=== PATIENT | female | born 1970 | race Two or more races ===

== ENCOUNTER 2020-01-11 02:46 | Inpatient (IN) | payer OTHER ==
[~2020-01-11] VITALS: Ht 160 cm; Wt 64.2 kg
[2020-01-11 03:57] LABS: Basophils # (auto) 0 10 ^3/uL (0-0.2); Basophils % (auto) 0.2 % (0.0-2.0); Eosinophils # (auto) 0 10 ^3/uL (0-0.8); Eosinophils % (auto) 0.2 % (0.0-7.0); Hematocrit 46.5 % (36.0-46.0); Hemoglobin 15.3 g/dL (12.2-16.2); Lymphocytes # (auto) 1.3 10 ^3/uL (0.4-5.4); Lymphocytes % (auto) 10.5 % (10.0-50.0); Mean Corpuscular Hemoglobin 27.8 pg (28.0-32.0); Mean Corpuscular Hgb Conc. 32.8 g/dL (32.0-36.0); Mean Corpuscular Volume 84.7 fL (80.0-100.0); Monocytes # (auto) 0.4 10 ^3/uL (0-1.3); Monocytes % (auto) 2.9 % (0.0-12.0); Neutrophils # (auto) 10.7 10 ^3/uL (1.6-8.6); Neutrophils % (auto) 86.2 % (37.0-80.0); Nucleated Red Blood Cells % 0.2 %; Platelet Count (auto) 279 10^3/uL (140-450); Red Blood Cells 5.49 10^6/uL (4.0-5.20); Red Cell Distribution Width 13.9 % (11.8-14.3); White Blood Cell 12.4 10^3/uL (4.4-10.8)
[2020-01-11 04:17] LABS: Albumin 4.1 g/dL (3.4-5.0); Anion Gap 10 (5-15); Blood Urea Nitrogen 10 mg/dL (7-18); Calcium 8.2 mg/dL (8.5-10.1); Carbon Dioxide 23 mmol/L (21-32); Chloride 100 mmol/L (98-107); Glucose 191 mg/dL (74-106); Lipase 88 U/L (73-393); Potassium 3.2 mmol/L (3.5-5.1); Sodium 133 mmol/L (136-145)
[2020-01-11 04:19] LABS: Amylase 31 U/L (25-115); BUN/Creatinine Ratio 15.2; GFR African American 121 mL/min; GFR Non-African American 100 mL/min
[2020-01-11] MEDS ORDERED: PROMETHAZINE HCL 25 MG/ML 1ML IV ONE (04:30)
[2020-01-11] MEDS ORDERED: MORPHINE SULFATE 4 MG/ML SYR/VIAL IV ONE ×2 (04:30→06:30)
[2020-01-11 04:59] LABS: Alanine Aminotransferase 67 U/L (13-56); Alkaline Phosphatase 105 U/L (45-117); Aspartate Aminotransferase 17 U/L (15-37); Bilirubin, Total 0.4 mg/dL (0.2-1.0); Total Protein 7.4 g/dL (6.4-8.2)
[2020-01-11] MEDS ORDERED: ONDANSETRON HCL 4 MG/2 ML VIAL IV ONE ×3 (06:30→14:30)
[2020-01-11] MEDS ORDERED: HYDROcodone-ACET 5/325MG TAB PO ONE (09:00)
[2020-01-11] MEDS ORDERED: HYDROmorphone HCL 2 MG/ML VL IV ONE (14:30)
[2020-01-11] MEDS ORDERED: SODIUM CHLORIDE 0.9% 1,000 ML IV SCH (14:30)
[2020-01-11] MEDS ORDERED: NITROGLYCERIN 0.4 MG SL TAB SL PRN (14:45)
[2020-01-11] MEDS ORDERED: MORPHINE SULF INJ 2 MG/ML SYRINGE 1ML IV PRN (14:45)
[2020-01-11] MEDS ORDERED: LORazepam 2MG/ML-1ML VIAL IV PRN (15:15)
[2020-01-11] MEDS ORDERED: PROMETHAZINE HCL 25 MG/ML 1ML IV PRN (15:15)
[2020-01-11] MEDS ORDERED: cefTRIAXone 1GM/50ML D5W 50 ML IV ONE (15:15)
[2020-01-11] MEDS ORDERED: HYDROmorphone HCL 2 MG/ML VL IV PRN (15:15)
[2020-01-11] MEDS: SOD CHL 0.9%/ KCL 40MEQ 1,000 ML IV SCH (17:35)
[2020-01-11] MEDS: FAMOTIDINE (10MG/ML) 2ML VL IV SCH (17:36)
--- NOTE | 2020-01-11 17:38 | NUR ---
Telemetry admit from ER YAYOEVELYN admitted to Telemetry unit after SBAR received Cassie JAQUEZ. Patient oriented to Birgit Tafoya RN primary RN, unit, room, bed, and unit policies regarding patient care and visiting hours. Patient now on continuous telemetry monitoring, tele box #75 and telemetry reading on arrival to unit is sinus tachycardia 111 BPM. Patient weighed by bedscale and encouraged to call if they need anything. Will continue to monitor. Bed side commode placed at bedside.
--- NOTE | 2020-01-11 19:15 | NUR ---
ASSUMED CARE, PT. AWAKE, NO C/O PAIN, NOT IN DISTRESS.
[2020-01-11] MEDS: HYDROmorphone HCL 2 MG/ML VL IV PRN (20:00)
[2020-01-11] MEDS: metroNIDAZOLE 500MG/100ML 100 ML IV SCH (21:01)
[2020-01-11 21:39] VITALS: BP 139/77
[2020-01-11 23:07] LABS: Amylase 32 U/L (25-115); Lipase 168 U/L (73-393)
[2020-01-12] MEDS: SOD CHL 0.9%/ KCL 40MEQ 1,000 ML IV SCH ×3 (01:15→21:22)
[2020-01-12] MEDS: FAMOTIDINE (10MG/ML) 2ML VL IV SCH ×2 (04:48→17:16)
[2020-01-12 05:00] VITALS: BP 110/73
[2020-01-12] MEDS: metroNIDAZOLE 500MG/100ML 100 ML IV SCH ×3 (05:02→21:22)
[2020-01-12 05:48] LABS: Basophils # (auto) 0 10 ^3/uL (0-0.2); Basophils % (auto) 0.2 % (0.0-2.0); Eosinophils # (auto) 0 10 ^3/uL (0-0.8); Eosinophils % (auto) 0.2 % (0.0-7.0); Hemoglobin 13.9 g/dL (12.2-16.2); Lymphocytes # (auto) 1.7 10 ^3/uL (0.4-5.4); Lymphocytes % (auto) 9.8 % (10.0-50.0); Mean Corpuscular Hemoglobin 28.2 pg (28.0-32.0); Mean Corpuscular Hgb Conc. 33.8 g/dL (32.0-36.0); Mean Corpuscular Volume 83.4 fL (80.0-100.0); Monocytes # (auto) 1.6 10 ^3/uL (0-1.3); Monocytes % (auto) 9.2 % (0.0-12.0); Neutrophils # (auto) 13.7 10 ^3/uL (1.6-8.6); Neutrophils % (auto) 80.6 % (37.0-80.0); Nucleated Red Blood Cells % 0.3 %; Platelet Count (auto) 279 10^3/uL (140-450); Red Blood Cells 4.91 10^6/uL (4.0-5.20); Red Cell Distribution Width 13.7 % (11.8-14.3); White Blood Cell 16.9 10^3/uL (4.4-10.8)
[2020-01-12 06:11] LABS: Albumin 3.3 g/dL (3.4-5.0); Calcium 8.1 mg/dL (8.5-10.1); Potassium 3.5 mmol/L (3.5-5.1)
[2020-01-12 06:14] LABS: Bilirubin, Total 0.7 mg/dL (0.2-1.0); Total Protein 6.3 g/dL (6.4-8.2)
--- NOTE | 2020-01-12 08:03 | NUR ---
Opening Shift Note Assumed care of patient, awake and alert. Patient placed on wheelchair to be transported down for HIDA scan. Patient stable, No S/S of distress/SOB or pain.
--- NOTE | 2020-01-12 08:40 | NUR ---
PATIENT OFF UNIT Addendum: 01/12/20 at 0840 by YANICK GORDON RN RN Amended: Links added.
[2020-01-12] MEDS: HYDROmorphone HCL 2 MG/ML VL IV PRN ×2 (09:46→21:23)
[2020-01-12] MEDS: cefTRIAXone 1GM/50ML D5W 50 ML IV SCH (09:46)
[2020-01-12 11:19] LABS: INR 1.06 (0.9-1.15); Partial Thromboplastin Time 29.5 sec (23.0-31.2)
[2020-01-12] MEDS ORDERED: ATOR10TA52 PO (11:41)
[2020-01-12] MEDS ORDERED: AMLO5TAB15 PO (11:41)
[2020-01-12] MEDS ORDERED: LOSA25TA38 PO (11:41)
[2020-01-12] MEDS ORDERED: HYDR25TA4 PO (11:41)
[2020-01-12 12:52] LABS: Urine Bacteria NONE SEEN /hpf (None Seen); Urine Blood Negative /uL (Negative); Urine Mucus MODERATE (None Seen); Urine Specific Gravity 1.015 (1.001-1.035); Urine WBC 4 /hpf (0 - 5)
[2020-01-12 13:00] VITALS: BP 126/81
--- NOTE | 2020-01-12 13:52 | NUR ---
PATIENT OFF UNIT FOR SCHEDULED PROCEDURE.
[2020-01-12] MEDS ORDERED: MIDAZOLAM HCL 1MG/1ML-2 ML VIAL ONE (14:15)
[2020-01-12] MEDS ORDERED: MIDAZOLAM HCL 1MG/1ML-2 ML VIAL IV PRN (14:15)
[2020-01-12] MEDS ORDERED: ONDANSETRON HCL 4 MG/2 ML VIAL IV PRN (14:15)
[2020-01-12] MEDS ORDERED: ePHEDrine SULFATE 50 MG/ML AMP IV PRN (14:15)
[2020-01-12] MEDS ORDERED: MEPERIDINE HCL (50 MG/ML) 1 ML VIAL ONE (14:15)
[2020-01-12] MEDS ORDERED: MORPHINE SULFATE 4 MG/ML SYR/VIAL IV PRN (14:15)
[2020-01-12] MEDS ORDERED: KETOROLAC TROMETH 30 MG/ML 1ML VIAL IV ONE (14:15)
[2020-01-12] MEDS ORDERED: ACCU-CHEK COMFORT CURVE STRIP VI ONE (14:15)
[2020-01-12] MEDS ORDERED: HYDROmorphone HCL 2 MG/ML VL IV PRN (14:15)
[2020-01-12] MEDS ORDERED: fentaNYL CITRATE 100 MCG/2 ML VL ONE (14:15)
[2020-01-12] MEDS ORDERED: LABETALOL HCL 5 MG/ML 4ML SYRINGE IV PRN (14:15)
[2020-01-12] MEDS ORDERED: PROPOFOL 10 MG/ML 20 ML IV ONE (15:03)
[2020-01-12] MEDS ORDERED: DexAMETHasone SOD PHOS 10MG/1ML VIAL INJ ONE (15:03)
--- NOTE | 2020-01-12 16:45 | NUR ---
Report received from GISELE HOGAN. JASE ZEE brought to bed 273B following LAP ROSE on property assessment monitor and portable oxygen. Patient transfered to unit bed, connected to shelter monitor #75 and oxygen. Incision site assessed for any bleeding, redness or swelling. Patient instructed on need to notify staff immediately if any pain, burning or wetness to site. All questions and concerns addressed, patient verbalized understanding of all education and instruction. See notes for any further.
[2020-01-12 17:14] VITALS: BP 117/76
--- NOTE | 2020-01-12 18:41 | NUR ---
CLOSING SHIFT NOTE PATIENT HAS NO S/S OF DISTRESS/SOB OR PAIN AT THIS TIME. WILL ENDORSE CARE TO SHUTTLE VAN DRIVER GISELE GARCIA.
--- NOTE | 2020-01-12 19:10 | NUR ---
assumed care, pt. awake, small dressing on abdomen dry and intact, no c/o pain, no sob.
[2020-01-12 21:30] VITALS: BP 116/79
[2020-01-13] MEDS: HYDROmorphone HCL 2 MG/ML VL IV PRN ×4 (02:45→21:02)
[2020-01-13] MEDS: FAMOTIDINE (10MG/ML) 2ML VL IV SCH ×2 (05:04→17:24)
[2020-01-13] MEDS: metroNIDAZOLE 500MG/100ML 100 ML IV SCH ×3 (05:04→21:02)
[2020-01-13 05:06] VITALS: BP 114/74
[2020-01-13 06:24] LABS: Basophils # (auto) 0 10 ^3/uL (0-0.2); Eosinophils # (auto) 0 10 ^3/uL (0-0.8); Hematocrit 38.4 % (36.0-46.0); Hemoglobin 12.4 g/dL (12.2-16.2); Mean Corpuscular Hemoglobin 27.5 pg (28.0-32.0); Mean Corpuscular Hgb Conc. 32.4 g/dL (32.0-36.0); Mean Corpuscular Volume 85.1 fL (80.0-100.0); Monocytes # (auto) 0.9 10 ^3/uL (0-1.3); Monocytes % (auto) 5.7 % (0.0-12.0); Neutrophils # (auto) 14.2 10 ^3/uL (1.6-8.6); Neutrophils % (auto) 88.3 % (37.0-80.0); Platelet Count (auto) 281 10^3/uL (140-450); Red Blood Cells 4.51 10^6/uL (4.0-5.20); Red Cell Distribution Width 13.9 % (11.8-14.3); White Blood Cell 16.1 10^3/uL (4.4-10.8)
[2020-01-13 06:44] LABS: Calcium 8.2 mg/dL (8.5-10.1)
[2020-01-13 06:48] LABS: BUN/Creatinine Ratio 18.8; Bilirubin, Total 0.4 mg/dL (0.2-1.0); Total Protein 6.1 g/dL (6.4-8.2)
--- NOTE | 2020-01-13 07:45 | NUR ---
Opening Shift Note Assumed care of patient, awake, alert, and oriented. No S/S of distress/SOB or pain. Bed in lowest/locked position, bed rails up x2, call light within reach. Instructed on POC and to call for assist PRN. Will continue to monitor for changes Q1hr and PRN.
[2020-01-13] MEDS: cefTRIAXone 1GM/50ML D5W 50 ML IV SCH (08:59)
[2020-01-13] MEDS: SOD CHL 0.9%/ KCL 40MEQ 1,000 ML IV SCH ×2 (08:59→13:26)
[2020-01-13 09:00] VITALS: BP 131/71
--- NOTE | 2020-01-13 09:00 | NUR ---
IV removal Patient IV leaking IV DC'd with clean sterile technique, catheter fully intact. Pressure dressing applied to site. Patient tolerated well. IV insertion IV access obtained, via clean sterile technique by inserting 22 gauge catheter at RIGHT HAND after 1 attempt. IV secured properly. No trauma to site. Patient tolerated procedure well.
--- NOTE | 2020-01-13 11:23 | NUR ---
Nutrition Assessment Est energy needs 4948-3247 kcal (25-30 kcal/kg BW 64.8kg) Est protein needs 52-65g (0.8-1g/kg BW 64.8kg) Will reassess prn. Addendum: 01/13/20 at [address] Amended: Links added.
--- NOTE | 2020-01-13 12:21 | NUR ---
MD ROUNDS DR EPPERSON AT BEDSIDE. NEW ORDERS RECEIVED/WILL CARRY OUT. WILL CONTINUE TO MONITOR
--- NOTE | 2020-01-13 12:30 | NUR ---
TELE D/C'ED TELE PER MD ORDERS. INFORMED TELE ROOM, SENT BACK TELE #75
[2020-01-13 13:00] VITALS: BP 119/73
--- NOTE | 2020-01-13 15:30 | NUR ---
AMBULATION PATIENT AMBULATING AROUND NURSES STATION. NO S/S OF DISTRESS, SOB. PATIENT TOLERATED WELL
[2020-01-13 16:50] VITALS: BP 114/70
[2020-01-13 22:00] VITALS: BP 124/80
[2020-01-14] MEDS: HYDROmorphone HCL 2 MG/ML VL IV PRN (04:53)
[2020-01-14] MEDS: metroNIDAZOLE 500MG/100ML 100 ML IV SCH ×2 (04:53→14:00)
[2020-01-14] MEDS: SOD CHL 0.9%/ KCL 40MEQ 1,000 ML IV SCH (04:53)
[2020-01-14 05:00] VITALS: BP 111/72
[2020-01-14 06:08] LABS: Basophils # (auto) 0.1 10 ^3/uL (0-0.2); Basophils % (auto) 0.4 % (0.0-2.0); Eosinophils # (auto) 0.1 10 ^3/uL (0-0.8); Eosinophils % (auto) 1.1 % (0.0-7.0); Hematocrit 38.6 % (36.0-46.0); Hemoglobin 12.5 g/dL (12.2-16.2); Lymphocytes % (auto) 24.5 % (10.0-50.0); Mean Corpuscular Hemoglobin 27.6 pg (28.0-32.0); Mean Corpuscular Hgb Conc. 32.5 g/dL (32.0-36.0); Mean Corpuscular Volume 85.1 fL (80.0-100.0); Monocytes # (auto) 0.9 10 ^3/uL (0-1.3); Monocytes % (auto) 7.6 % (0.0-12.0); Neutrophils % (auto) 66.4 % (37.0-80.0); Platelet Count (auto) 289 10^3/uL (140-450); Red Blood Cells 4.53 10^6/uL (4.0-5.20); Red Cell Distribution Width 13.6 % (11.8-14.3); White Blood Cell 12.1 10^3/uL (4.4-10.8)
[2020-01-14 06:32] LABS: Potassium 3.8 mmol/L (3.5-5.1)
[2020-01-14 06:43] LABS: BUN/Creatinine Ratio 11.6; Bilirubin, Total 0.3 mg/dL (0.2-1.0); Calcium 8.1 mg/dL (8.5-10.1); Total Protein 6.2 g/dL (6.4-8.2)
--- NOTE | 2020-01-14 07:30 | NUR ---
Opening Shift Note Assumed care of patient, awake and alert. Respirations are even and unlabored. No S/S of distress/SOB or pain. S/P laparoscopic cholecystectomy. Dressings C/D/I with abdominal binder in place. Bed is low, locked with 2x side rails up. Call light is within reach. Instructed on POC and to call for assist PRN, will continue to monitor for changes Q1hr and PRN.
[2020-01-14 09:00] VITALS: BP 113/63
[2020-01-14] MEDS ORDERED: FAMOTIDINE (10MG/ML) 2ML VL IV SCH (10:00)
[2020-01-14] MEDS: cefTRIAXone 1GM/50ML D5W 50 ML IV SCH (10:17)
[2020-01-14 13:00] VITALS: BP 129/71
[2020-01-14 15:51] VITALS: BP 129/71
[2020-01-14 17:00] VITALS: BP 127/81
--- NOTE | 2020-01-14 17:05 | NUR ---
Assessment Patient is a 49-year-old female, who is alert and oriented. Patient cognitive abilities are intact. Patient states that she can do all ADLs and ambulates independently. 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 Patient lives with her and children. Patient states that she will return home post discharge and her son (Kuldip [phone]) will provide transportation post discharge. Patient is receptive to receive Advance Directive forms. Discharge planning: Patient will follow up with her PCP post discharge. Patient will return home. SW will provide Advance Directive to patient. Additional post discharge needs are yet to be determine at this moment. Addendum: 01/14/20 at 1707 by UMANG DON Amended: Links added.
--- NOTE | 2020-01-14 17:15 | NUR ---
Discharge instructions given as ordered. Encourage to follow up with PMD as instructed. Patient encouraged to call Dr. Barraza's office to schedule a follow up appointment. Office information provided. All questions and concerns addressed. Patient verbalized understanding. IV removed with catheter intact, pressure dressing applied. Patient taken to vehicle via wheelchair with all personal belongings, accompanied by staff. No distress noted at time of departure.
== END 2020-01-14 17:13 | disposition home or self-care (01) | DRG 854 ==
LOC: ER 02:46 → TELE 02:47 → WEST WING 17:16 → TELE-WESTW 17:45 → WEST WING 01-14 03:31
PROVIDERS: ADMIT Internal Medicine; ATTEND Internal Medicine
PROC: 0FT44ZZ Resection of Gallbladder, Percutaneous Endoscopic Approach (ICD-10-PCS; principal; 2020-01-12 14:30)
DX: A41.9 Sepsis, unspecified organism (principal); K80.12 Calculus of gallbladder with acute and chronic cholecystitis without obstruction; E87.1 Hypo-osmolality and hyponatremia; E87.6 Hypokalemia; R73.9 Hyperglycemia, unspecified; Z20.828 Contact with and (suspected) exposure to other viral communicable diseases; E78.5 Hyperlipidemia, unspecified; I10 Essential (primary) hypertension; I25.10 Atherosclerotic heart disease of native coronary artery without angina pectoris; K76.0 Fatty (change of) liver, not elsewhere classified; K59.00 Constipation, unspecified; Z90.710 Acquired absence of both cervix and uterus; Z79.899 Other long term (current) drug therapy
CPT/HCPCS: 36415; 71045; 74176; 76705; 78226; 80053; 81001; 82150; 83690; 84484; 85025; 85610; 85730; 86850; 86900; 86901; 87426; 93005; G0378; J0696; J1100; J2250; J2405; J2704; J3490

== ENCOUNTER 2020-07-22 17:07 | Inpatient (IN) | payer OTHER ==
[~2020-07-22] VITALS: Ht 160 cm; Wt 63.6 kg
[~2020-07-22 17:07] MED LIST: AMLO-489 PO; ATOR10TA52 PO; HYDR25TA4 PO; LOSA25TA38 PO
[2020-07-22] MEDS ORDERED: SODIUM CHLORIDE 0.9% 1,000 ML IVB ONE (17:45)
[2020-07-22 18:25] LABS: Basophils # (auto) 0 10 ^3/uL (0-0.2); Basophils % (auto) 0.4 % (0.0-2.0); Eosinophils # (auto) 0.1 10 ^3/uL (0-0.8); Eosinophils % (auto) 0.7 % (0.0-7.0); Hematocrit 39.4 % (36.0-46.0); Hemoglobin 13.4 g/dL (12.2-16.2); Lymphocytes # (auto) 2.3 10 ^3/uL (0.4-5.4); Lymphocytes % (auto) 20.8 % (10.0-50.0); Mean Corpuscular Hemoglobin 28.7 pg (28.0-32.0); Mean Corpuscular Hgb Conc. 34.1 g/dL (32.0-36.0); Monocytes # (auto) 0.9 10 ^3/uL (0-1.3); Monocytes % (auto) 7.9 % (0.0-12.0); Neutrophils # (auto) 7.8 10 ^3/uL (1.6-8.6); Neutrophils % (auto) 70.2 % (37.0-80.0); Platelet Count (auto) 299 10^3/uL (140-450); Red Blood Cells 4.69 10^6/uL (4.0-5.20); Red Cell Distribution Width 14.3 % (11.8-14.3); White Blood Cell 11.1 10^3/uL (4.4-10.8)
[2020-07-22 18:38] LABS: Albumin 3.7 g/dL (3.4-5.0); Calcium 8.3 mg/dL (8.5-10.1)
[2020-07-22 18:40] LABS: BUN/Creatinine Ratio 19.4
[2020-07-22 18:42] LABS: Bilirubin, Total 0.4 mg/dL (0.2-1.0); Total Protein 7.1 g/dL (6.4-8.2)
[2020-07-22 18:53] LABS: Potassium 2.9 mmol/L (3.5-5.1)
[2020-07-22] MEDS ORDERED: POTASSIUM CHL 20 Meq TABLET PO ONE (19:00)
[2020-07-22 20:29] LABS: Urine Bacteria FEW /hpf (None Seen); Urine Blood 3+ /uL (Negative); Urine Hyaline Cast FEW /lpf (0 - 2); Urine Specific Gravity 1.003 (1.001-1.035); Urine WBC 87 /hpf (0 - 5)
[2020-07-22] MEDS ORDERED: cefTRIAXone 1GM/50ML D5W 50 ML IV ONE (20:30)
[2020-07-22] MEDS ORDERED: ONDANSETRON HCL 4 MG/2 ML VIAL IV ONE (20:30)
[2020-07-22] MEDS ORDERED: MORPHINE SULFATE 4 MG/ML SYR/VIAL IV ONE (20:30)
[2020-07-22] MEDS ORDERED: MORPHINE SULF INJ 2 MG/ML SYRINGE 1ML IV PRN (23:15)
[2020-07-22] MEDS ORDERED: ACETAMINOPHEN 325 MG TAB PO PRN (23:15)
[2020-07-22] MEDS ORDERED: MORPHINE SULFATE 4 MG/ML SYR/VIAL IV PRN (23:15)
[2020-07-22] MEDS ORDERED: NITROGLYCERIN 0.4 MG SL TAB SL PRN (23:15)
[2020-07-22] MEDS ORDERED: SODIUM CHLORIDE 0.9% 1,000 ML IV SCH (23:15)
[2020-07-22] MEDS ORDERED: ONDANSETRON HCL 4 MG/2 ML VIAL IV PRN (23:15)
[2020-07-23] MEDS: HYDROcodone-ACET 5/325MG TAB PO PRN ×2 (02:34→11:18)
[2020-07-23 05:00] VITALS: BP 113/70
[2020-07-23 08:40] LABS: Basophils # (auto) 0 10 ^3/uL (0-0.2); Basophils % (auto) 0.3 % (0.0-2.0); Eosinophils # (auto) 0.1 10 ^3/uL (0-0.8); Eosinophils % (auto) 0.9 % (0.0-7.0); Hematocrit 34.9 % (36.0-46.0); Hemoglobin 12.1 g/dL (12.2-16.2); Lymphocytes # (auto) 2.5 10 ^3/uL (0.4-5.4); Lymphocytes % (auto) 30.7 % (10.0-50.0); Mean Corpuscular Hemoglobin 29.1 pg (28.0-32.0); Mean Corpuscular Hgb Conc. 34.6 g/dL (32.0-36.0); Monocytes # (auto) 0.8 10 ^3/uL (0-1.3); Monocytes % (auto) 9.6 % (0.0-12.0); Neutrophils # (auto) 4.7 10 ^3/uL (1.6-8.6); Neutrophils % (auto) 58.5 % (37.0-80.0); Platelet Count (auto) 247 10^3/uL (140-450); Red Blood Cells 4.15 10^6/uL (4.0-5.20)
[2020-07-23 09:00] VITALS: BP 107/72
[2020-07-23] MEDS ORDERED: cefTRIAXone 1GM/50ML D5W 50 ML IV SCH (09:00)
[2020-07-23] MEDS: ENOXAPARIN SOD 40 MG/0.4 ML SYRINGE SC SCH (09:01)
[2020-07-23] MEDS: FAMOTIDINE (10MG/ML) 2ML VL IV SCH ×2 (09:01→22:20)
[2020-07-23 09:04] LABS: BUN/Creatinine Ratio 13.8; Calcium 7.5 mg/dL (8.5-10.1); Potassium 3.3 mmol/L (3.5-5.1)
[2020-07-23 09:07] LABS: Bilirubin, Total 0.4 mg/dL (0.2-1.0); Total Protein 5.7 g/dL (6.4-8.2)
[2020-07-23 13:00] VITALS: BP 103/67
[2020-07-23] MEDS ORDERED: levoFLOXacin 250MG 50 ML IV ONE (13:15)
[2020-07-23] MEDS: SODIUM CHLORIDE 0.9% 1,000 ML IV SCH ×2 (14:09→20:22)
[2020-07-23] MEDS: metroNIDAZOLE 500MG/100ML 100 ML IV SCH ×2 (14:11→22:20)
[2020-07-23 16:47] VITALS: BP 108/61
[2020-07-23 22:24] VITALS: BP 115/62
[2020-07-23] MEDS ORDERED: TEMAZEPAM 15 MG CAP PO ONE (22:30)
[2020-07-24] MEDS: SODIUM CHLORIDE 0.9% 1,000 ML IV SCH ×4 (02:42→23:17)
[2020-07-24 05:26] VITALS: BP 133/82
[2020-07-24 05:41] LABS: Basophils # (auto) 0 10 ^3/uL (0-0.2); Basophils % (auto) 0.5 % (0.0-2.0); Eosinophils # (auto) 0 10 ^3/uL (0-0.8); Eosinophils % (auto) 0.7 % (0.0-7.0); Hematocrit 33.8 % (36.0-46.0); Hemoglobin 11.8 g/dL (12.2-16.2); Lymphocytes % (auto) 32.2 % (10.0-50.0); Mean Corpuscular Hemoglobin 29.4 pg (28.0-32.0); Monocytes # (auto) 0.5 10 ^3/uL (0-1.3); Neutrophils # (auto) 3.7 10 ^3/uL (1.6-8.6); Neutrophils % (auto) 58.6 % (37.0-80.0); Nucleated Red Blood Cells % 0.1 %; Platelet Count (auto) 236 10^3/uL (140-450); Red Blood Cells 4.02 10^6/uL (4.0-5.20); Red Cell Distribution Width 14.1 % (11.8-14.3); White Blood Cell 6.3 10^3/uL (4.4-10.8)
[2020-07-24 05:57] LABS: BUN/Creatinine Ratio 22.6; Calcium 7.7 mg/dL (8.5-10.1); Potassium 3.4 mmol/L (3.5-5.1)
[2020-07-24] MEDS ORDERED: POTASSIUM EFFERVESENT TAB 25 MEQ PO ONE (06:00)
[2020-07-24] MEDS: metroNIDAZOLE 500MG/100ML 100 ML IV SCH ×3 (06:02→22:23)
[2020-07-24 08:15] VITALS: BP 119/69
[2020-07-24 09:00] VITALS: BP 119/69
[2020-07-24] MEDS ORDERED: POTASSIUM CHL 20 Meq TABLET PO ONE (09:30)
[2020-07-24] MEDS ORDERED: levoFLOXacin 250MG 50 ML IV SCH (10:00)
[2020-07-24] MEDS: ENOXAPARIN SOD 40 MG/0.4 ML SYRINGE SC SCH (10:11)
[2020-07-24] MEDS: FAMOTIDINE (10MG/ML) 2ML VL IV SCH ×2 (10:11→22:23)
[2020-07-24 13:00] VITALS: BP 130/78
[2020-07-24 17:00] VITALS: BP 125/79
[2020-07-24] MEDS ORDERED: TEMAZEPAM 15 MG CAP PO ONE (22:15)
[2020-07-24 22:45] VITALS: BP 128/78
[2020-07-25 05:24] VITALS: BP 125/77
[2020-07-25] MEDS: metroNIDAZOLE 500MG/100ML 100 ML IV SCH (05:27)
[2020-07-25] MEDS: SODIUM CHLORIDE 0.9% 1,000 ML IV SCH ×2 (05:28→11:27)
[2020-07-25 08:25] VITALS: BP 133/82
[2020-07-25 09:00] VITALS: BP 133/82
[2020-07-25 09:54] VITALS: BP 133/82
[2020-07-25] MEDS: ENOXAPARIN SOD 40 MG/0.4 ML SYRINGE SC SCH (10:00)
[2020-07-25] MEDS ORDERED: levoFLOXacin 500MG 100 ML IV SCH (10:00)
[2020-07-25] MEDS: FAMOTIDINE (10MG/ML) 2ML VL IV SCH (10:15)
== END 2020-07-25 11:40 | disposition home or self-care (01) | DRG 690 ==
LOC: ER 17:07 → TELE 23:12 → TELE-EAST 07-23 05:00
PROVIDERS: ADMIT Nurse Practitioner Family; ATTEND Family Medicine
DX: N30.91 Cystitis, unspecified with hematuria (principal); K52.9 Noninfective gastroenteritis and colitis, unspecified; E78.5 Hyperlipidemia, unspecified; Z20.822 Contact with and (suspected) exposure to COVID-19; I10 Essential (primary) hypertension; E87.6 Hypokalemia; Z90.49 Acquired absence of other specified parts of digestive tract; Z90.710 Acquired absence of both cervix and uterus; Z79.899 Other long term (current) drug therapy
CPT/HCPCS: 36415; 74176; 80048; 80053; 81001; 83690; 85025; 87040; 87086; 87426; 96361; 96365; 96375; G0378; J0696; J1956; J2405; J3490